=== PATIENT | female | born 1965 | race Caucasian/White ===

== ENCOUNTER 2021-02-28 10:57 | Inpatient (IN) | payer OTHER ==
[2021-02-27 15:16] VITALS: BMI 39.6
[2021-02-28] MEDS ORDERED: MIDAZOLAM HCL 2 MG/2 ML SINGLE DOSE VIAL ONE ×3 (13:36→16:49)
[2021-02-28] MEDS ORDERED: SODIUM CHLORIDE 0.9% P/F 10 ML VIAL IJ ONE (13:37)
[2021-02-28] MEDS ORDERED: BUPIVACAINE HCL/PF 0.5% (5MG/ML) 10 ML VIAL ONE (13:37)
[2021-02-28] MEDS ORDERED: BUPIVACAINE LIPOSOME/PF (EXPAREL) 266 MG/20 ML VIAL ONE (13:37)
[2021-02-28] MEDS ORDERED: BUPIVACAINE HCL 50 ML ONE (14:57)
[2021-02-28] MEDS ORDERED: ePHEDrine SULFATE 50 MG/1 ML AMPULE ONE (15:38)
[2021-02-28] MEDS ORDERED: BENZOIN/ALOE VERA/STORAX/TOLU 30 ML TINCTURE ONE (15:39)
[2021-02-28] MEDS ORDERED: KETOROLAC TROMETHAMINE 30 MG/1 ML VIAL ONE ×2 (15:48→18:49)
[2021-02-28] MEDS ORDERED: ceFAZolin SODIUM 1 GM VIAL ONE (15:48)
[2021-02-28] MEDS ORDERED: DEXAMETHASONE SOD PHOSPHATE 4 MG/1 ML VIAL ONE (15:48)
[2021-02-28] MEDS ORDERED: VANCOMYCIN 1,000 MG VIAL (RESTRICTED TO ID ONLY) ONE (15:48)
[2021-02-28] MEDS ORDERED: TRANEXAMIC ACID 1000 MG/10 ML VIAL ONE (15:48)
[2021-02-28] MEDS ORDERED: ONDANSETRON 4 MG/2 ML VIAL ONE (15:48)
[2021-02-28] MEDS ORDERED: PROPOFOL 20 ML ONE ×4 (15:59→18:10)
[2021-02-28] MEDS ORDERED: ACETAMINOPHEN INJECTION 100 ML IVPB ONE (18:49)
[2021-02-28] MEDS ORDERED: ALBUTEROL SO4 HFA INHALER IH PRN (18:54)
[2021-02-28] MEDS ORDERED: MAGNESIUM HYDROX 2400MG/30ML ORAL SUSPENSION 30 ML CUP PO PRN (18:54)
[2021-02-28] MEDS ORDERED: ONDANSETRON 4 MG/2 ML VIAL IVPUSH PRN ×2 (18:54→19:11)
[2021-02-28] MEDS ORDERED: MAG HYDROX/AL HYDROX/SIMETH 30 ML UNIT-DOSE CUP PO PRN (18:54)
[2021-02-28] MEDS ORDERED: LACTATED RINGERS SOLUTION 1,000 ML IV SCH ×2 (19:00→19:15)
[2021-02-28] MEDS ORDERED: PROMETHAZINE HCL 25 MG/1 ML VIAL IVPUSH PRN (19:11)
[2021-02-28] MEDS: ACETAMINOPHEN 1000 MG/100 ML VIAL IVPB ONE (19:15)
[2021-02-28] MEDS: KETOROLAC TROMETHAMINE 30 MG/1 ML VIAL IVPUSH SCH (19:21)
[2021-02-28] MEDS ORDERED: GLYCOPYRROLATE 0.2 MG/1 ML VIAL IM ONE (20:27)
[2021-02-28] MEDS ORDERED: GLYCOPYRROLATE 0.2 MG/1 ML VIAL IVPB ONE (20:31)
[2021-02-28] MEDS ORDERED: PANTOPRAZOLE 40 MG TABLET PO SCH (22:00)
[2021-02-28] MEDS: ACETAMINOPHEN 500 MG TABLET (FP) PO SCH (23:16)
[2021-02-28] MEDS: CELECOXIB 200 MG CAPSULE PO SCH (23:17)
[2021-02-28] MEDS: ATORVASTATIN CA 10 MG TABLET (FP) PO SCH (23:17)
[2021-02-28] MEDS: ASPIRIN COATED 81 MG TABLET.EC PO SCH (23:17)
[2021-02-28] MEDS: SENNOSIDES/DOCUSATE COMBO (SENNA PLUS) TABLET (UD) PO SCH (23:18)
[2021-02-28] MEDS: oxyCODONE HCL 10 MG SUSTAINED ACTING TABLET PO SCH (23:20)
[2021-03-01] MEDS: KETOROLAC TROMETHAMINE 30 MG/1 ML VIAL IVPUSH SCH ×2 (01:04→07:54)
[2021-03-01] MEDS: CEFAZOLIN 2 GM in DEXTROSE 5%-WATER 100 ML IVPB SCH ×3 (01:37→13:27)
[2021-03-01] MEDS: oxyCODONE HCL 5 MG TABLET PO PRN ×3 (01:38→22:03)
[2021-03-01] MEDS: ACETAMINOPHEN 500 MG TABLET (FP) PO SCH ×4 (03:56→21:08)
[2021-03-01] MEDS ORDERED: PATIENT'S OWN MEDICATION (NON-FORMULARY) (Levothyroxine Sodium [Levothyroxine] 175 MCG Cap PO SCH (07:00)
[2021-03-01] MEDS: ACETAMINOPHEN 1000 MG/100 ML VIAL IVPB ONE (07:54)
[2021-03-01] MEDS ORDERED: LEVOTHYROXINE NA 25 MCG TABLET (FP) ONE (07:58)
[2021-03-01] MEDS ORDERED: LEVOTHYROXINE NA 150 MCG TABLET ONE (07:58)
[2021-03-01] MEDS: LEVOTHYROXINE 150 MCG, LEVOTHYROXINE 25 MCG PO SCH (08:04)
[2021-03-01 08:30] LABS: CALCIUM 9.2 mg/dl (8.5-10); CREATININE 0.7 mg/dl (0.55-1.3)
[2021-03-01] MEDS: PANTOPRAZOLE 40 MG TABLET PO SCH (09:36)
[2021-03-01] MEDS: CELECOXIB 200 MG CAPSULE PO SCH ×2 (09:36→21:08)
[2021-03-01] MEDS: ASPIRIN COATED 81 MG TABLET.EC PO SCH ×2 (09:36→21:08)
[2021-03-01] MEDS: SENNOSIDES/DOCUSATE COMBO (SENNA PLUS) TABLET (UD) PO SCH ×2 (09:37→21:08)
[2021-03-01] MEDS: LORATADINE 10 MG TABLET PO SCH (09:37)
[2021-03-01 09:59] LABS: HEMATOCRIT 37.1 % (32.4-45.2); HEMOGLOBIN 12.5 GM/dL (10.7-15.3); MCH 28.9 pg (25.7-33.7); MCHC 33.6 g/dl (32.0-36.0); MEAN CELL VOLUME 86.1 fl (80-96); MEAN PLT VOLUME 7.6 fl (7.5-11.1); PLATELET COUNT 489 10^3/uL (134-434); RBC 4.31 M/mm3 (3.60-5.2); RDW 14.3 % (11.6-15.6); WHITE BLOOD COUNT 15.7 K/mm3 (4.0-10.0)
[2021-03-01] MEDS: oxyCODONE HCL 10 MG SUSTAINED ACTING TABLET PO SCH ×2 (11:12→21:09)
[2021-03-01] MEDS ORDERED: ceFAZolin SODIUM 1 GM VIAL ONE (13:15)
[2021-03-01] MEDS ORDERED: DEXTROSE 5%-WATER 100 ML IVPB ONE (13:15)
[2021-03-01] MEDS: SCOPOLAMINE HYDROBROMIDE 1 PATCH PATCH.TD72 TD SCH (13:27)
[2021-03-01] MEDS: ATORVASTATIN CA 10 MG TABLET (FP) PO SCH (21:08)
[2021-03-02] MEDS: ACETAMINOPHEN 500 MG TABLET (FP) PO SCH ×4 (04:47→22:03)
[2021-03-02] MEDS: oxyCODONE HCL 5 MG TABLET PO PRN ×3 (04:47→22:02)
[2021-03-02] MEDS ORDERED: LEVOTHYROXINE NA 25 MCG TABLET (FP) ONE (06:41)
[2021-03-02] MEDS ORDERED: LEVOTHYROXINE NA 150 MCG TABLET ONE (06:42)
[2021-03-02] MEDS: LEVOTHYROXINE 150 MCG, LEVOTHYROXINE 25 MCG PO SCH (06:43)
[2021-03-02] MEDS: ASPIRIN COATED 81 MG TABLET.EC PO SCH ×2 (10:18→22:01)
[2021-03-02] MEDS: CELECOXIB 200 MG CAPSULE PO SCH ×2 (10:18→22:01)
[2021-03-02] MEDS: oxyCODONE HCL 10 MG SUSTAINED ACTING TABLET PO SCH ×2 (10:19→22:01)
[2021-03-02] MEDS: LORATADINE 10 MG TABLET PO SCH (10:19)
[2021-03-02] MEDS: PANTOPRAZOLE 40 MG TABLET PO SCH (10:20)
[2021-03-02] MEDS: SENNOSIDES/DOCUSATE COMBO (SENNA PLUS) TABLET (UD) PO SCH ×2 (10:20→22:02)
[2021-03-02 12:47] LABS: HEMATOCRIT 35.8 % (32.4-45.2); HEMOGLOBIN 11.8 GM/dL (10.7-15.3); MCH 28.2 pg (25.7-33.7); MEAN CELL VOLUME 85.5 fl (80-96); MEAN PLT VOLUME 7.4 fl (7.5-11.1); PLATELET COUNT 465 10^3/uL (134-434); RBC 4.19 M/mm3 (3.60-5.2); RDW 14.7 % (11.6-15.6); WHITE BLOOD COUNT 15.8 K/mm3 (4.0-10.0)
[2021-03-02] MEDS ORDERED: MAGNESIUM OXIDE 400 MG TABLET (FP) PO ONE (15:05)
[2021-03-02] MEDS: ATORVASTATIN CA 10 MG TABLET (FP) PO SCH (22:01)
[2021-03-03] MEDS ORDERED: LEVOTHYROXINE NA 150 MCG TABLET ONE (06:19)
[2021-03-03] MEDS ORDERED: LEVOTHYROXINE NA 25 MCG TABLET (FP) ONE (06:19)
[2021-03-03] MEDS: ACETAMINOPHEN 500 MG TABLET (FP) PO SCH ×3 (06:22→16:52)
[2021-03-03] MEDS: LEVOTHYROXINE 150 MCG, LEVOTHYROXINE 25 MCG PO SCH (06:23)
[2021-03-03] MEDS: oxyCODONE HCL 5 MG TABLET PO PRN (06:24)
[2021-03-03] MEDS: SENNOSIDES/DOCUSATE COMBO (SENNA PLUS) TABLET (UD) PO SCH ×2 (09:57→21:25)
[2021-03-03] MEDS: CELECOXIB 200 MG CAPSULE PO SCH ×2 (09:58→21:34)
[2021-03-03] MEDS: PANTOPRAZOLE 40 MG TABLET PO SCH (09:58)
[2021-03-03] MEDS: ASPIRIN COATED 81 MG TABLET.EC PO SCH ×2 (09:58→21:34)
[2021-03-03] MEDS: oxyCODONE HCL 10 MG SUSTAINED ACTING TABLET PO SCH (09:58)
[2021-03-03] MEDS: LORATADINE 10 MG TABLET PO SCH (10:11)
[2021-03-03] MEDS: ATORVASTATIN CA 10 MG TABLET (FP) PO SCH (21:34)
[2021-03-04] MEDS: oxyCODONE HCL 5 MG TABLET PO PRN ×5 (01:35→22:17)
[2021-03-04] MEDS ORDERED: LEVOTHYROXINE NA 25 MCG TABLET (FP) ONE (05:49)
[2021-03-04] MEDS ORDERED: LEVOTHYROXINE NA 150 MCG TABLET ONE (05:49)
[2021-03-04] MEDS: LEVOTHYROXINE 150 MCG, LEVOTHYROXINE 25 MCG PO SCH (06:08)
[2021-03-04] MEDS: CELECOXIB 200 MG CAPSULE PO SCH ×2 (09:26→21:02)
[2021-03-04] MEDS: PANTOPRAZOLE 40 MG TABLET PO SCH (09:26)
[2021-03-04] MEDS: ASPIRIN COATED 81 MG TABLET.EC PO SCH ×2 (09:26→21:02)
[2021-03-04] MEDS: SENNOSIDES/DOCUSATE COMBO (SENNA PLUS) TABLET (UD) PO SCH ×2 (09:26→21:05)
[2021-03-04] MEDS: LORATADINE 10 MG TABLET PO SCH (09:26)
[2021-03-04] MEDS: SCOPOLAMINE HYDROBROMIDE 1 PATCH PATCH.TD72 TD SCH (14:03)
[2021-03-04] MEDS: ATORVASTATIN CA 10 MG TABLET (FP) PO SCH (21:02)
[2021-03-05] MEDS ORDERED: LEVOTHYROXINE NA 150 MCG TABLET ONE (06:30)
[2021-03-05] MEDS ORDERED: LEVOTHYROXINE NA 25 MCG TABLET (FP) ONE (06:30)
[2021-03-05] MEDS: LEVOTHYROXINE 150 MCG, LEVOTHYROXINE 25 MCG PO SCH (06:32)
[2021-03-05 08:35] LABS: ALBUMIN 3.2 g/dl (3.4-5.0); CALCIUM 8.9 mg/dl (8.5-10); CREATININE 0.7 mg/dl (0.55-1.3); MAGNESIUM 1.9 mg/dL (1.8-2.4); PHOSPHOROUS 3.6 mg/dl (2.5-4.9); TOT PROT 6.6 g/dl (6.4-8.2)
[2021-03-05 09:07] VITALS: BP 139/57; PULSE 60; TEMP 98
[2021-03-05] MEDS: SENNOSIDES/DOCUSATE COMBO (SENNA PLUS) TABLET (UD) PO SCH (09:16)
[2021-03-05] MEDS: CELECOXIB 200 MG CAPSULE PO SCH (09:16)
[2021-03-05] MEDS: PANTOPRAZOLE 40 MG TABLET PO SCH (09:16)
[2021-03-05] MEDS: LORATADINE 10 MG TABLET PO SCH (09:16)
[2021-03-05] MEDS: ASPIRIN COATED 81 MG TABLET.EC PO SCH (09:16)
[2021-03-05] MEDS: oxyCODONE HCL 5 MG TABLET PO PRN (09:17)
[2021-03-05 09:57] LABS: BASO % 0.7 % (0-2.0); HEMATOCRIT 36.2 % (32.4-45.2); HEMOGLOBIN 12.1 GM/dL (10.7-15.3); LYMPH % 21.8 % (8-40); MCH 28.7 pg (25.7-33.7); MCHC 33.5 g/dl (32.0-36.0); MEAN CELL VOLUME 85.6 fl (80-96); MEAN PLT VOLUME 7.5 fl (7.5-11.1); MONO % 6.4 % (3.8-10.2); NEUT % 69.1 % (42.8-82.8); PLATELET COUNT 521 10^3/uL (134-434); RBC 4.23 M/mm3 (3.60-5.2); RDW 14.3 % (11.6-15.6); WHITE BLOOD COUNT 11.1 K/mm3 (4.0-10.0)
== END 2021-03-05 15:00 | disposition home or self-care (01) ==
LOC: FASUSAT 10:57 → FM/S 18:54
PROVIDERS: ADMIT Orthopaedic Surgery Orthopaedic Surgery of the Spine; ATTEND Orthopaedic Surgery Adult Reconstructive Orthopaedic Surgery
DX: Z96.651 Presence of right artificial knee joint (principal)
CPT/HCPCS: 36415; 73560-TC-RT-FY; 80048; 80053; 83735; 84100; 85025; 85027; 88305-TC; 88311-TC; 94760; 97010-GP; 97116-GP; 97163-GP; J0131